=== PATIENT | female | born 1935 | race Caucasian/White ===

== ENCOUNTER 2017-01-21 21:31 | Emergency (ER) | payer MEDICARE, MEDICAID ==
[~2017-01-21] VITALS: Ht 157.5 cm; Wt 72.6 kg
[2017-01-21 22:35] LABS: BASOPHILS % (AUTO) 0.6 % (0.0-2.0); EOSINOPHILS % (AUTO) 1.8 % (0.0-3.0); LYMPHOCYTES % (AUTO) 29.9 % (20.0-45.0); MEAN CORPUSCULAR HEMOGLOBIN 34.1 PG (27.0-31.0); MEAN CORPUSCULAR HGB CONC 35.6 G/DL (32.0-36.0); MEAN CORPUSCULAR VOLUME 96 FL (80-99); MEAN PLATELET VOLUME 6.2 FL (6.5-10.1); MONOCYTES % (AUTO) 9.4 % (1.0-10.0); NEUTROPHILS % (AUTO) 58.3 % (45.0-75.0); PLATELET COUNT 239 K/UL (150-450); RED CELL DISTRIBUTION WIDTH 13.9 % (11.6-14.8); WHITE BLOOD COUNT 9.7 K/UL (4.8-10.8)
[2017-01-21 22:37] LABS: APPEARANCE,URINE CLEAR; KETONES,URINE NEGATIVE (NEGATIVE); LEUKOCYTE ESTERASE ,URINE 2+ (NEGATIVE); NITRITE,URINE NEGATIVE (NEGATIVE); PH,URINE 5 (4.5-8.0); PROTEIN,URINE NEGATIVE (NEGATIVE); UROBILINOGEN,URINE NORMAL MG/DL (0.0-1.0)
[2017-01-21 22:51] LABS: ALANINE AMINOTRANSFERASE 31 U/L (3-33); ALBUMIN/GLOBULIN RATIO 1.2 (1.0-2.7); ANION GAP 16 (5-15); ASPARTATE AMINO TRANSFERASE 31 U/L (5-40); CALCIUM 9.4 mg/dL (8.6-10.2); CARBON DIOXIDE 28 mEQ/L (20-30); CHLORIDE 95 mEQ/L (98-107); HEMOLYSIS 6; LIPASE 29 U/L (< 60); POTASSIUM 3.9 mEQ/L (3.4-4.9); SODIUM 139 mEQ/L (135-145); TOTAL PROTEIN 7.7 g/dL (6.6-8.7)
[2017-01-21 22:59] LABS: BACTERIA,URINE FEW /HPF; SQUAMOUS EPITHELIAL CELL,UR FEW /LPF (NONE/OCC)
[2017-01-21] MEDS ORDERED: Morphine Sulfate 2mg/ml Inj ONE (23:42)
[2017-01-21] MEDS ORDERED: Morphine Sulfate 2mg/ml Inj IVP ONE (23:45)
[2017-01-21] MEDS ORDERED: Famotidine 20 MG/ 2ML VIAL IVP ONE (23:45)
[2017-01-22 00:57] VITALS: BP 129/73
[2017-01-22] MEDS ORDERED: KEFLEX500 MG ORAL (01:17)
[2017-01-22] MEDS ORDERED: ACETAMINOPHEN-1 EAC1 ORAL (01:17)
[2017-01-22 01:35] VITALS: BP 129/73
--- NOTE | 2017-01-22 06:32 | Emergency Room Report ---
History of Present Illness General Chief Complaint: Lower Back Pain or Injury Source: Patient Present Illness HPI 81-year-old female presents ED complaining of back pain. Daughter is at bedside states that for the last one week patient is complaining of back pain. 03/18, lower back, radiating to left flank. Daughter gave patient some tramadol for pain which did not help. Patient notes history of kidney stone in the past. Denies fevers or chills, denies nausea or vomiting. No other aggravating or relieving factors. Denies any other associated symptoms Allergies: Coded Allergies: No Known Allergies (Unverified , 01/21/17) Patient History Past Medical History: DM, HTN Past Surgical History: none Pertinent Family History: none Social History: Denies: alcohol use, drug use, smoking Last Menstrual Period: NONE Now: No Immunizations: UTD Reviewed Nursing Documentation: PMH: Agreed, PSxH: Agreed Nursing Documentation-PMH Hx Hypertension: Yes Hx Diabetes: Yes Review of Systems All Other Systems: negative except mentioned in HPI Physical Exam Vital Signs Date Time Temp Pulse Resp B/P Pulse Ox O2 Delivery O2 Flow Rate FiO2 01/21/17 21:43 98.2 71 18 161/61 95 Room Air Sp02 EP Interpretation: reviewed, normal General Appearance: no apparent distress, alert, GCS 15, non-toxic Head: normocephalic Eyes: bilateral eye PERRL, bilateral eye normal inspection ENT: normal ENT inspection Neck: normal inspection Respiratory: chest non-tender, lungs clear, normal breath sounds, speaking full sentences Cardiovascular #1: regular rate, rhythm, no edema Gastrointestinal: normal bowel sounds, non tender, soft, non-distended, no guarding, no rebound Rectal: deferred Genitourinary: CVA tenderness (L) Musculoskeletal: other - paraspinal lumbar tenderness Neurologic: alert, oriented x3, responsive, motor strength/tone normal, sensory intact, speech normal Psychiatric: normal inspection Skin: normal inspection Lymphatic: normal inspection Medical Decision Making Diagnostic Impression: Primary Impression: Pyelonephritis Additional Impression: Low back pain Qualified Codes: M54.5 - Low back pain ER Course Hospital Course 81-year-old female presents to ED with lower back pain and left-sided flank pain Differential diagnosis includes- kidney stone, pyelonephritis, lumbar strain Clinical course Patient placed on stretcher. After initial history and physical I ordered labs , IV fluids, pain medications and CT scan Labs - no leukocytosis, electyrolyts ok, LFTs normal, UA + blood + bacteria CT scan shows some perinephric stranding. no kidney stones. some nodules in lung i discussed findings with patient and daughter. will followup with PMD I feel this is a highly complex case requiring extensive working including EKG/ Rhythm strip, Xray/CT/US, Blood/urine lab work, repeat exams while in ED, and administration of strong opiates/narcotics for pain control, admission to hospital or close patient follow up. Diagnosis - pyelonephritis, low back pain Stable and discharged to home with Rx Tyelnol #3, Keflex. Followup with PMD. Return to ED if symptoms recur or worsen Labs Test 01/21/17 22:15 White Blood Count 9.7 K/UL (4.8-10.8) Red Blood Count 4.60 M/UL (4.20-5.40) Hemoglobin 15.7 G/DL (12.0-16.0) Hematocrit 44.0 % (37.0-47.0) Mean Corpuscular Volume 96 FL (80-99) Mean Corpuscular Hemoglobin 34.1 PG (27.0-31.0) Mean Corpuscular Hemoglobin Concent 35.6 G/DL (32.0-36.0) Red Cell Distribution Width 13.9 % (11.6-14.8) Platelet Count 239 K/UL (150-450) Mean Platelet Volume 6.2 FL (6.5-10.1) Neutrophils (%) (Auto) 58.3 % (45.0-75.0) Lymphocytes (%) (Auto) 29.9 % (20.0-45.0) Monocytes (%) (Auto) 9.4 % (1.0-10.0) Eosinophils (%) (Auto) 1.8 % (0.0-3.0) Basophils (%) (Auto) 0.6 % (0.0-2.0) Urine Color Pale yellow Urine Appearance Clear Urine pH 5 (4.5-8.0) Urine Specific [place] 1.020 (1.005-1.035) Urine Protein Negative (NEGATIVE) Urine Glucose (UA) Negative (NEGATIVE) Urine Ketones Negative (NEGATIVE) Urine Occult Blood 4+ (NEGATIVE) Urine Nitrite Negative (NEGATIVE) Urine Bilirubin Negative (NEGATIVE) Urine Urobilinogen Normal MG/DL (0.0-1.0) Urine Leukocyte Esterase 2+ (NEGATIVE) Urine RBC 5-10 /HPF (0 - 2) Urine WBC 2-4 /HPF (0 - 2) Urine Squamous Epithelial Cells Few /LPF (NONE/OCC) Urine Bacteria Few /HPF (NONE) Sodium Level 139 mEQ/L (135-145) Potassium Level 3.9 mEQ/L (3.4-4.9) Chloride Level 95 mEQ/L (98-107) Carbon Dioxide Level 28 mEQ/L (20-30) Anion Gap 16 (5-15) Blood Urea Nitrogen 19 mg/dL (7-23) Creatinine 1.0 mg/dL (0.5-0.9) Estimat Glomerular Filtration Rate mL/min (>60) Glucose Level 127 mg/dL (74-106) Calcium Level 9.4 mg/dL (8.6-10.2) Total Bilirubin 0.3 mg/dL (0.0-1.2) Aspartate Amino Transf (AST/SGOT) 31 U/L (5-40) Alanine Aminotransferase (ALT/SGPT) 31 U/L (3-33) Alkaline Phosphatase 57 U/L (35-104) Total Protein 7.7 g/dL (6.6-8.7) Albumin 4.3 g/dL (3.5-5.2) Globulin 3.4 g/dL Albumin/Globulin Ratio 1.2 (1.0-2.7) Lipase 29 U/L (< 60) CT/MRI/US Diagnostic Results CT/MRI/US Diagnostic Results : Imaging Test Ordered: CT A/P Impression perinephric stranding suggestive of pyelonephritis. no kidney stones. nodules noted in the lungs. Last Vital Signs Date Time Temp Pulse Resp B/P Pulse Ox O2 Delivery O2 Flow Rate FiO2 01/22/17 01:35 97.6 66 16 129/73 99 Room Air Status: improved Disposition: HOME, SELF-CARE Condition: Stable Scripts Cephalexin* (KEFLEX*) 500 Mg Capsule 500 MG ORAL Q6H, #28 CAP 0 Refills Prov: ROCKY GARCIA M.D. 01/22/17 Acetaminophen With Codeine (T#3) (TYLENOL #3 TAB*) Y Tab 1 TAB ORAL Q8H Y for For Pain, #20 TAB Prov: ROCKY GARCIA M.D. 01/22/17 Referrals: NON PHYSICIAN (PCP) Patient Instructions: Pyelonephritis, Adult ROCKY GARCIA M.D. January 22, 2017 06:32
--- NOTE | 2017-01-22 13:35 | Diagnostic Imaging Report ---
Indications: Abdominal/flank pain Technique: Continuous helical CT imaging of the abdomen and pelvis was performed with automatic exposure control on a Siemens sensation [address] scanner. Axial, coronal, and sagittal images were reconstructed at 3 mm slice thickness. No oral or IV contrast was administered per protocol. CTDI volume(s): 19 mGy Total DLP: 990 mGy-cm Findings: Comparison: None. Kidneys, ureters, urinary bladder demonstrate no intraparenchymal or intraluminal stones, collecting system or ureteral dilation, perinephric or periureteral stranding. Mild stranding resides adjacent to both kidneys. 1 cm circumscribed low-attenuation mass emanates exophytically from posterior interpolar cortex of right kidney, not further characterizable. Small hiatal hernia. The appendix is unremarkable. Colonic diverticula. The gastrointestinal tract is normal in caliber. No extraluminal gas or fluid collections are demonstrated. Liver measures over 20 cm in length, contains small nodular calcification in segment 5. Gallbladder absent. Surgical clips in gallbladder fossa. Scattered arterial mural calcifications. Vascular patency indeterminate. Small fat-containing umbilical hernia. Small nodular calcification in left anterior pelvic intraperitoneal fat. Remainder of visualized abdominopelvic anatomy demonstrates no other obvious abnormality, though lack of oral and IV contrast limits evaluation. Increased interstitial markings, superimposed discrete pleural-based linear densities in both lung bases. 7 mm noncalcified nodule lateral segment right pulmonary middle lobe (4-9). 8mm noncalcified nodule superior segment left pulmonary lower lobe (4-one). Heart enlarged. Multilevel disc space narrowing with marginal osteophyte formation, vacuum phenomenon and lumbar, lower thoracic spine. Facet sclerosis and hypertrophy lower lumbar spine. Subcentimeter anterior subluxation of L5 on S1. No associated pars interarticularis defect. 2 cm lucent lesion with coarsened central trabeculated and L3 vertebral body. Small sclerotic focus left femoral neck.. IMPRESSION: No evidence of renal or ureteral stone, hydronephrosis or hydroureter. Unremarkable appendix -- no evidence of acute appendicitis. No other evidence of acute abdominopelvic disease. Lack of oral and IV contrast limits evaluation, however, and subtle abnormalities may be missed. Repeat CT scan with full oral and IV contrast preparation recommended for more complete evaluation, as clinically indicated. Hepatomegaly with granuloma Previous cholecystectomy Small right renal cortical mass, nonspecific, cysts versus neoplasm. Ultrasound correlation recommended. Mild bilateral perinephric stranding, nonspecific, correlate with renal function, urinalysis Colonic diverticulosis Left hemipelvic intraperitoneal calcification, nonspecific, may represent sigmoid colon diverticula filled with barium, granuloma, chronic sequela of previous inflammatory disease such as epiploic appendagitis or mesenteric panniculitis Arteriosclerosis Degenerative spondylosis L3 vertebral body lesion most likely hemangioma Left femoral neck lesion most likely [place] Pulmonary bibasal subsegmental atelectasis versus scarring, superimposed nonspecific interstitial disease Cardiomegaly Bilateral subcentimeter lung nodules, nonspecific, inflammatory versus neoplastic. Dedicated contrast-enhanced CT scan the thorax recommended for completion of evaluation. If patient is at low risk for malignancy, then recommend followup CT scan in 6 months; 3 months of high-risk. This correlates with [employer] preliminary report. The CT scanner at [facility] is accredited by the [employer] and the scans are performed using protocols designed to limit radiation exposure to as low as reasonably achievable to attain images of sufficient resolution adequate for -- diagnostic evaluation.
== END 2017-01-22 01:35 | disposition home or self-care (01) ==
LOC: EMR 22:10
DX: N12 Tubulo-interstitial nephritis, not specified as acute or chronic (principal); M54.5 Low back pain; E11.9 Type 2 diabetes mellitus without complications; I10 Essential (primary) hypertension; R16.0 Hepatomegaly, not elsewhere classified; Z90.49 Acquired absence of other specified parts of digestive tract; K57.30 Diverticulosis of large intestine without perforation or abscess without bleeding; M47.816 Spondylosis without myelopathy or radiculopathy, lumbar region; I51.7 Cardiomegaly; R91.8 Other nonspecific abnormal finding of lung field
CPT/HCPCS: 36415; 74176; 80053; 81003; 83690; 85025; 96360; 96374; 96375; 99284; J2270; J7040; S0028

== ENCOUNTER 2019-05-10 07:42 | Emergency (ER) | payer MEDICARE, MEDICAID ==
[~2019-05-10] VITALS: Ht 142.2 cm; Wt 77.6 kg
[~2019-05-10 07:42] MED LIST: ACETAMINOPHEN-1 EAC1 ORAL; KEFLEX500 MG ORAL
[2019-05-10] MEDS ORDERED: IRBESARTAN-HCT1 EAC2 PO (08:00)
[2019-05-10] MEDS ORDERED: AMLODIPINE BESYL5 MG ORAL (08:00)
[2019-05-10] MEDS ORDERED: LEVOTHYROXINE75 MCG ORAL (08:00)
[2019-05-10] MEDS ORDERED: JANUMET 50-5001 EACH ORAL (08:00)
[2019-05-10] MEDS ORDERED: SOTALOL120 MG PO (08:00)
[2019-05-10] MEDS ORDERED: XARELTO20 MG ORAL (08:00)
[2019-05-10 08:08] VITALS: BP 155/75
--- NOTE | 2019-05-10 08:16 | Emergency Room Report ---
History of Present Illness General Chief Complaint: Lower Back Pain or Injury Source: Patient Present Illness HPI Patient is an 83-year-old female who presents after increased low back pain. Patient prior history of similar low back pain in the past. She had not been having any fever. She had intermittently been having episodes like this in the past. Pain was unrelieved by Tylenol. Sharp in nature. Worse with movement. She denies any recent trauma. Patient prior history of type 2 diabetes as well as paroxysmal atrial fibrillation with anticoagulant use with Xarelto she also takes Synthroid for hypothyroidism after thyroidectomy. Allergies: Coded Allergies: No Known Allergies (Unverified , 01/21/17) Patient History Past Medical History: see triage record Reviewed Nursing Documentation: PMH: Agreed; PSxH: Agreed Nursing Documentation-PMH Hx Hypertension: Yes Hx Diabetes: Yes Review of Systems All Other Systems: negative except mentioned in HPI Physical Exam Vital Signs Date Time Temp Pulse Resp B/P (MAP) Pulse Ox O2 Delivery O2 Flow Rate FiO2 05/10/19 07:48 97.7 74 19 155/75 (101) 97 Room Air Sp02 EP Interpretation: reviewed, normal General Appearance: normal inspection, well appearing, no apparent distress, alert, GCS 15, obese, Chronically Ill Head: atraumatic ENT: normal ENT inspection, hearing grossly normal, normal voice Neck: normal inspection, full range of motion, supple, no bony tend Respiratory: normal inspection, lungs clear, normal breath sounds, no respiratory distress, no retraction, no wheezing Cardiovascular #1: regular rate, rhythm, no edema Gastrointestinal: normal inspection, normal bowel sounds, non tender, soft, no guarding, no hernia Genitourinary: no CVA tenderness Musculoskeletal: normal inspection, back normal, normal range of motion, decreased range of motion, other - kyphosis, mild Neurologic: normal inspection, alert, oriented x3, responsive, technical service rep III-XII nml as tested, speech normal Psychiatric: normal inspection, judgement/insight normal, mood/affect normal Medical Decision Making Diagnostic Impression: Primary Impression: Chronic back pain ER Course Patient presented for back pain. Differential diagnosis included but was not limited to herniated disc, cauda equina syndrome, abdominal aortic aneurysm, perforated ulcer, spinal epidural abscess, spinal stenosis, lumbar fracture, metastatic lesion, pyelonephritis. Patient was noted to have prior imaging which showed some evidence of renal cyst versus neoplasm. Patient was noted to have also some lung nodule. Patient apparently had not had any recent imaging. Patient was offered CT imaging which they declined at this time. Patient was given prescription for oral pain medications. Patient will be followed up with primary care physician for reevaluation of these lesions. Patient to return if any worsening condition or other concerns. She is given prescription for oral pain medications. Last Vital Signs Date Time Temp Pulse Resp B/P (MAP) Pulse Ox O2 Delivery O2 Flow Rate FiO2 05/10/19 08:08 97.7 19 155/75 97 Room Air 05/10/19 07:48 74 Status: improved Disposition: HOME, SELF-CARE Condition: Stable Scripts Diclofenac Sodium (VOLTAREN) 100 Gm Gel..gram. 5 GM TP DAILY for pain, #100 GM Prov: Jarred Sanz MD 05/10/19 Docusate Sodium* (COLACE*) 100 Mg Capsule 100 MG ORAL TWICE A DAY, #30 CAP Prov: Jarred Sanz MD 05/10/19 Hydrocodone Bit/Acetaminophen 5-325* (NORCO 5-325*) 1 Each Tablet 1 TAB ORAL Q6H PRN for For Pain, #10 TAB 0 Refills Prov: Jarred Sanz MD 05/10/19 Jarred Sanz MD May 10, 2019 08:16
--- NOTE | 2019-05-10 08:17 | NUR ---
ED Nurse Note: pt walked in c/o lower back pain on and off for 2 years ermd eval done daughter at bedside.
[2019-05-10] MEDS ORDERED: VOLTAREN100 G1 TP ×3 (08:20→08:35)
[2019-05-10] MEDS ORDERED: NORCO 5-325 TA1 EACH ORAL (08:20)
[2019-05-10] MEDS ORDERED: COLACE100 MG ORAL ×3 (08:20→08:35)
--- NOTE | 2019-05-10 08:49 | NUR ---
ED Nurse Note: pt refused Lido patch . pt medicated with mobic po.
--- NOTE | 2019-05-10 08:51 | NUR ---
ED Nurse Note: pt voided once but unable to catch her urine ermd informed no further orders.
--- NOTE | 2019-05-10 08:52 | NUR ---
ED Nurse Note: Pt cleared by health care Provider for discharge. DC instructions/prescription was given and explained to pt and verbalized understanding of teachings. All medical deviecs such as ID band removed. Pt is AAO x4, ambulatory and left with all personal belongings.
== END 2019-05-10 09:24 | disposition home or self-care (01) ==
LOC: EMR 08:35
DX: G89.29 Other chronic pain (principal); M54.5 Low back pain; I10 Essential (primary) hypertension; E11.9 Type 2 diabetes mellitus without complications; E89.0 Postprocedural hypothyroidism; I48.0 Paroxysmal atrial fibrillation; Z79.01 Long term (current) use of anticoagulants
CPT/HCPCS: 99283